=== PATIENT | female | born 1970 | race Caucasian/White ===

== ENCOUNTER 2017-04-12 09:25 | Emergency (ER) | payer OTHER ==
[2017-04-12] MEDS ORDERED: Fluorescein Opthalmic Strip ONE (11:08)
[2017-04-12] MEDS ORDERED: Proparacaine 0.5% Opth 15 ML BOT ONE (11:08)
== END 2017-04-12 11:53 | disposition home or self-care (01) ==
LOC: ERS 09:25
DX: S05.01XA Injury of conjunctiva and corneal abrasion without foreign body, right eye, initial encounter (principal); J06.9 Acute upper respiratory infection, unspecified; Z79.899 Other long term (current) drug therapy; W22.8XXA Striking against or struck by other objects, initial encounter
CPT/HCPCS: 99283